=== PATIENT | male | born 1990 | race Caucasian/White ===

== ENCOUNTER 2019-08-18 08:45 | Emergency (ER) | payer MEDICAID ==
[~2019-08-18] VITALS: Ht 182.9 cm; Wt 72.6 kg
[2019-08-18] MEDS ORDERED: HALOPERIDOL5 MG PO (10:20)
--- OUTSIDE RECORDS SUMMARY | 2019-08-18 11:14 | XMS ---
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 Events currently on file CRITERIA MET - 6 ED Visits in 6 Months - [facility] - 2 Visits in 30 Days CARE PROVIDERS LEE ANN EPPS [facility] 03/08/2017-Current PHONE: Unknown [facility] Primary Care 01/29/2017-Current [facility] PHONE: [phone] [facility] 02/05/2018-Current Health PHONE: Unknown [facility] Primary Care Current [facility] Care Guidelines exist for the following facilities: Melchor Bailey ( 06/02/2019 ) Maria A VISIT COUNT (12 MO.) [facility] NOTE: Visits indicate total known visits. ED/UCC VISIT TRACKING (12 MO.) 08/18/2019 08:46 JOSE ANTONIO Rehman [place] TYPE: Emergency COMPLAINT: - VOMITING 07/26/2019 17:04 Rayna Montanez [place] TYPE: Emergency DIAGNOSES: - Nausea with vomiting, unspecified - Vomiting (Severe) - Vomiting 06/17/2019 15:19 Rayna Montanez [place] TYPE: Emergency DIAGNOSES: - emesis - Cyclical vomiting, not intractable 06/17/2019 04:55 [place] TYPE: Emergency DIAGNOSES: - Abdominal Pain - Unspecified abdominal pain - Cannabis abuse, uncomplicated - Emesis - nv - Vomiting, unspecified 05/14/2019 10:40 Rayna Garciawallace Montanez [place] TYPE: Emergency DIAGNOSES: - Cyclical vomiting, not intractable - Emesis 05/11/2019 18:12 Rayna Garciae BarronKeena Montanez [place] TYPE: Emergency DIAGNOSES: - Cannabis abuse with other cannabis-induced disorder - emesis - Diarrhea (Adult) 03/30/2019 03:58 [place] [facility] Grant[facility]ace Montanez [place] TYPE: Emergency DIAGNOSES: - Emesis - Unspecified abdominal pain - Nausea with vomiting, unspecified 03/29/2019 06:22 Rayna Valdezwamagdaleno MartKeena Montanez [place] TYPE: Emergency DIAGNOSES: - Cyclical vomiting, intractable - Emesis - Mild hyperemesis gravidarum 03/27/2019 12:34 [place] [facility] Grant[facility]ace Montanez [place] TYPE: Emergency DIAGNOSES: - Nausea - Cyclical vomiting, not intractable - Emesis 03/25/2019 09:32 [place] [facility] Grant[facility]ace Montanez [place] TYPE: Emergency DIAGNOSES: - Nausea with vomiting, unspecified - Emesis - vomiting - Unspecified abdominal pain 03/23/2019 16:12 [place] Lisseth Montanez [place] TYPE: Emergency DIAGNOSES: - Cyclical vomiting, not intractable - Right testicular pain - Emesis - Testicle Pain 02/26/2019 15:26 Rayna Montanez [place] TYPE: Emergency DIAGNOSES: - Emesis - Cannabis abuse with other cannabis-induced disorder 01/29/2019 20:04 Rayna Montanez [place] TYPE: Emergency DIAGNOSES: - back pain - Low back pain 01/09/2019 14:43 Rayna Montanez [place] TYPE: Emergency DIAGNOSES: - Cannabis use, unspecified, uncomplicated - Unspecified abdominal pain - Vomiting, unspecified - Hypokalemia - Abdominal Pain 01/08/2019 18:55 Rayna Montanez [place] TYPE: Emergency DIAGNOSES: - Neck Pain - shoulder/neck/back pn - Strain of muscle, fascia and tendon at neck level, initial encounter - Strain of muscle, fascia and tendon at neck level, initial encounter 01/07/2019 14:57 Rayna Montanez [place] TYPE: Emergency DIAGNOSES: - Nausea - Unspecified abdominal pain - Unspecified abdominal pain - Emesis - Nausea with vomiting, unspecified - Nausea with vomiting, unspecified 01/07/2019 14:32 [facility] Violetta ANDRADE [place] TYPE: Emergency 11/14/2018 18:09 Rayna Montanez [place] TYPE: Emergency DIAGNOSES: - Abdominal Pain - ABD pain; emesis - Vomiting, unspecified - Emesis - Unspecified abdominal pain 09/07/2018 15:23 Rayna Montanez [place] TYPE: Emergency DIAGNOSES: - Cannabis use, unspecified with other cannabis-induced disorder - Emesis - vomiting INPATIENT VISIT TRACKING (12 MO.) No inpatient visits to display in this time frame [email or web address]
== END 2019-08-18 10:45 | disposition home or self-care (01) ==
LOC: ED 08:45
DX: F12.188 Cannabis abuse with other cannabis-induced disorder (principal); R11.10 Vomiting, unspecified; F17.200 Nicotine dependence, unspecified, uncomplicated
CPT/HCPCS: 96361; 96374; 96375; 99283-25; J1200; J1630; J7030